=== PATIENT | male | born 1970 | race Caucasian/White ===

== ENCOUNTER 2017-10-04 12:58 | Outpatient (CLI) | payer OTHER ==
--- NOTE | 2017-10-04 14:49 | Ultrasound Report ---
SCROTAL DUPLEX: 10/04/2017 CLINICAL INDICATION: Pain, left-sided mass. TECHNIQUE: Real-time scanning was performed with publications sales representative static images obtained. FINDINGS: Right testicle measures 4.3 x 2.5 x 2.2 cm, and the left testicle measures 4.3 x 2.5 x 2.2 cm. Both testicles demonstrate normal flow and echotexture. No intratesticular mass is identified. The epididymides are unremarkable. No hydrocele or varicocele is present. No hernia is identified. IMPRESSION: NORMAL SCROTAL DUPLEX. NO EVIDENCE OF INTRATESTICULAR MASS. TD: 10/04/2017 14:14
== END 2017-10-04 12:59 | disposition home or self-care (01) ==
LOC: DI 12:58
PROVIDERS: ATTEND Physician Assistant Medical
DX: N50.812 Left testicular pain (principal); N50.9 Disorder of male genital organs, unspecified
CPT/HCPCS: 76870

== ENCOUNTER 2018-02-19 09:40 | Outpatient (CLI) | payer OTHER ==
--- NOTE | 2018-02-19 15:35 | XRAY Report ---
Reason: SEVERE PAIN X 2 MO Procedure Date: 02/19/2018 Accession Number: [id number] / [id number] Procedure: XR - Foot 3 View RT CPT Code: FULL RESULT: EXAM: RIGHT FOOT RADIOGRAPHY EXAM DATE: 02/19/2018 09:54 AM. CLINICAL HISTORY: SEVERE PAIN X 2 MO. COMPARISON: None. TECHNIQUE: 3 views. FINDINGS: Bones: Plantar heel spur. No fractures or bone lesions. Joints: Normal. No subluxations. Soft Tissues: Normal. No soft tissue swelling. IMPRESSION: Heel spur RADIA
== END 2018-02-19 09:41 | disposition home or self-care (01) ==
LOC: DI 09:40
PROVIDERS: ATTEND Podiatrist
DX: M77.31 Calcaneal spur, right foot (principal)

== ENCOUNTER 2020-10-20 16:53 | Outpatient (CLI) | payer OTHER | END 2020-10-20 16:54 | disposition home or self-care (01) | LOC: COV 16:53 | PROVIDERS: ATTEND Family Medicine | DX: Z20.822 Contact with and (suspected) exposure to COVID-19 (principal) ==

== ENCOUNTER 2021-02-26 07:00 | Outpatient (CLI) | payer OTHER | END 2021-02-26 23:59 | disposition home or self-care (01) | LOC: COV 07:00 | PROVIDERS: ATTEND Family Medicine | DX: J06.9 Acute upper respiratory infection, unspecified (principal); Z20.822 Contact with and (suspected) exposure to COVID-19 ==

== ENCOUNTER 2021-03-08 18:44 | Outpatient (CLI) | payer OTHER | END 2021-03-08 18:45 | disposition home or self-care (01) | LOC: COV 18:44 | PROVIDERS: ATTEND Family Medicine | DX: J06.9 Acute upper respiratory infection, unspecified (principal); Z20.822 Contact with and (suspected) exposure to COVID-19 ==